=== PATIENT | male | born 1965 | race Caucasian/White ===

== ENCOUNTER 2018-03-30 01:24 | Emergency (ER) | payer OTHER ==
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
[2018-03-30 04:20] VITALS: BP 144/89
== END 2018-03-30 04:20 | disposition home or self-care (01) ==
LOC: ER 01:24
DX: M79.1 Myalgia (principal); I10 Essential (primary) hypertension; R51 Headache; M25.562 Pain in left knee; G89.29 Other chronic pain; Z79.899 Other long term (current) drug therapy; V89.2XXA Person injured in unspecified motor-vehicle accident, traffic, initial encounter
CPT/HCPCS: 99283